=== PATIENT | female | born 1955 | race Caucasian/White ===

== ENCOUNTER → 2019-09-04 | Outpatient (CLI) | payer OTHER ==
[~2019-09-04] MED LIST: EFFEXOR 5050 MG/1 T1 PO; HYDROXYZINE HCL25 M1 PO; PERCOCET PO; TRAZODONE HCL100 MG PO; VALIUM5 MG PO
== END ==
LOC: CAT 11:06
DX: Z13.6 Encounter for screening for cardiovascular disorders (principal); I25.10 Atherosclerotic heart disease of native coronary artery without angina pectoris; E78.00 Pure hypercholesterolemia, unspecified